=== PATIENT | male | born 1970 | race Caucasian/White ===

== ENCOUNTER 2017-11-26 09:25 | Day surgery (SDC) | payer OTHER ==
[2017-11-26] VITALS (12 sets, daily range): BP systolic 122–161; BP diastolic 70–91
[~2017-11-26] VITALS: Ht 190.5 cm; Wt 88.5 kg
[~2017-11-26 09:25] MED LIST: NO HOME MEDS; cefazolin/dext.iso 2gm/50ml 50 ML IV ONE; famotidine 20mg tablet PO ONE; ringers solution, lacted 1,000 ML IV SCH
[2017-11-26] MEDS ORDERED: BUPIVAcaine/PF 2.5 mg/ml (0.25%) 30ml vial ONE (11:11)
[2017-11-26] MEDS ORDERED: ceFAZolin 1000mg inj ONE (11:11)
[2017-11-26] MEDS ORDERED: sevoflurane 250ml liquid IH ONE (11:43)
[2017-11-26] MEDS ORDERED: fentaNYL /PF 50mcg/ml 5ml ampule ONE (11:47)
[2017-11-26] MEDS ORDERED: midazolam 2 mg/2 ml injection ONE (11:47)
[2017-11-26] MEDS ORDERED: propofol inj 20 ML IV ONE (11:48)
[2017-11-26] MEDS ORDERED: rocuronium 10mg/ml inj IV ONE (11:48)
[2017-11-26] MEDS ORDERED: ringers solution, lacted 1,000 ML IV SCH (12:09)
[2017-11-26] MEDS ORDERED: ondansetron/PF 4mg/2ml inj IV PRN (12:10)
[2017-11-26] MEDS ORDERED: morphine 4 MG/ML inj SYRINge IV PRN ×2 (12:10)
[2017-11-26] MEDS ORDERED: meperidine/PF 50mg/ml syringe IV PRN ×2 (12:10)
[2017-11-26] MEDS ORDERED: proCHLORperazine 10 MG/2 ml inj IV PRN (12:10)
[2017-11-26] MEDS ORDERED: MORPHINE 2MG in 2ml NS syringe IV PRN (12:13)
[2017-11-26] MEDS ORDERED: glycopyrrolate 0.2mg/ml inj ONE (12:52)
[2017-11-26] MEDS ORDERED: neostigmine methylsulfate 1 MG/ML 10ml vial ONE (12:52)
[2017-11-26] MEDS ORDERED: ketorolac trometh. 30mg/ml inj. ONE (13:05)
[2017-11-26] MEDS: meperidine/PF 50mg/ml syringe IV PRN ×4 (13:25→13:57)
== END 2017-11-26 14:40 | disposition home or self-care (01) ==
LOC: PAS 09:25
PROVIDERS: ATTEND Surgery
DX: K40.90 Unilateral inguinal hernia, without obstruction or gangrene, not specified as recurrent (principal); I10 Essential (primary) hypertension; Z98.52 Vasectomy status; Z98.890 Other specified postprocedural states
CPT/HCPCS: 49650; 93005; A4315; A6258; C1727; C1781; J0690; J1885; J2175; J2250; J2274; J2704; J2710; J3010; J3490; J7120

== ENCOUNTER 2018-08-04 11:48 | Outpatient (CLI) | payer OTHER ==
[~2018-08-04 11:48] MED LIST changes: -cefazolin/dext.iso 2gm/50ml 50 ML IV ONE; -famotidine 20mg tablet PO ONE; -ringers solution, lacted 1,000 ML IV SCH
== END 2018-08-04 23:59 | disposition home or self-care (01) ==
LOC: RAD 11:48
PROVIDERS: ATTEND Family Medicine
DX: M75.22 Bicipital tendinitis, left shoulder (principal)
CPT/HCPCS: 73080

== ENCOUNTER 2019-11-02 09:06 | Outpatient (CLI) | payer OTHER ==
[2019-11-02 09:45] LABS: CLARITY,URINE CLEAR (Clear); COLOR,URINE YELLOW (Yellow); GLUCOSE, URINE NEGATIVE (Neg); KETONES,URINE NEGATIVE (Neg); LEUKOCYTE ESTERASE ,URINE NEGATIVE (Neg); NITRITES, URINE NEGATIVE (Neg); OCCULT BLOOD,URINE NEGATIVE (Neg); PROTEIN,URINE NEGATIVE (Neg); UROBILINOGEN,URINE 0.2 E.U/dL (0.2-1.0)
[2019-11-02 09:49] LABS: BASOPHILS % (AUTO) 0.8 % (0-1); EOSINOPHILS # (AUTO) 0.3 X10'3 (0-0.9); EOSINOPHILS % (AUTO) 6.3 % (0-6); HEMATOCRIT 43.5 % (42.0-52.0); HEMOGLOBIN 14.8 g/dl (14.0-17.9); LYMPHOCYTES # (AUTO) 1.4 X10'3 (1.1-4.8); LYMPHOCYTES % (AUTO) 29.6 % (21-51); MEAN CORPUSCULAR HEMOGLOBIN 30.6 PG (27.0-31.0); MEAN CORPUSCULAR VOLUME 89.8 FL (78-98); MEAN PLATELET VOLUME 7.6 FL (7.4-10.4); MONOCYTES # (AUTO) 0.6 X10'3 (0-0.9); MONOCYTES % (AUTO) 12.3 % (2-12); NEUTROPHILS # (AUTO) 2.4 X10'3 (1.8-7.7); PLATELET COUNT 253 X10'3 (140-440); RED BLOOD COUNT 4.84 X10'6 (4.70-6.10); RED CELL DISTRIBUTION WIDTH 13.9 % (11.5-14.5); WHITE BLOOD COUNT 4.6 X10'3 (4.5-11.0)
[2019-11-02 10:03] LABS: UA COLLECTION TYPE VOIDED
[2019-11-02 10:17] LABS: ALANINE AMINOTRANSFERASE 30 U/L (12-78); ALBUMIN 3.9 G/DL (3.4-5.0); ALKALINE PHOSPHATASE 69 IU/L (46-116); ANION GAP 9 (8-16); ASPARTATE AMINO TRANSFERASE 20 U/L (10-37); BILIRUBIN,TOTAL 0.3 MG/DL (0.1-1.0); BLOOD UREA NITROGEN 17 MG/DL (7-18); BUN/CREATININE RATIO 15.3 (5.4-32.0); CALCIUM 8.6 MG/DL (8.5-10.1); CHLORIDE 104 MMOL/L (99-107); CHOL/HDL RATIO 3.1 (0.00-4.99); CHOLESTEROL 183 MG/DL (0-200); CREATININE 1.11 MG/DL (0.60-1.10); GLUCOSE 103 MG/DL (70-104); HDL CHOLESTEROL 60 MG/DL (35-60); LDL CHOLESTEROL 96 MG/DL (50-100); POTASSIUM 4.1 MMOL/L (3.5-5.1); SODIUM 141 MMOL/L (135-145); TOTAL PROTEIN 7.8 G/DL (6.4-8.2); TRIGLYCERIDES 61 MG/DL (20-135); eGFR 71 ML/MIN
[2019-11-02 10:20] LABS: HEMOGLOBIN A1C 5.4 % (4.5-6.2)
== END 2019-11-02 23:59 | disposition home or self-care (01) ==
LOC: LAB 09:06
PROVIDERS: ATTEND Family Medicine
DX: Z00.00 Encounter for general adult medical examination without abnormal findings (principal)
CPT/HCPCS: 36415; 80053; 80061; 81003; 83036; 84439; 84443; 85025

== ENCOUNTER 2020-12-02 15:06 | Emergency (ER) | payer BC, OTHER ==
[~2020-12-02] VITALS: Ht 190.5 cm; Wt 90.9 kg
[2020-12-02 15:09] VITALS: BP 167/96
[2020-12-02] MEDS ORDERED: LIDOcaine 1% W/epiNEPHrine 1:200,000 10ml vial IJ ONE (15:50)
== END 2020-12-02 17:43 | disposition home or self-care (01) ==
LOC: ER 15:06
DX: S51.812A Laceration without foreign body of left forearm, initial encounter (principal); R20.0 Anesthesia of skin; Z90.89 Acquired absence of other organs; W18.39XA Other fall on same level, initial encounter; Y93.89 Activity, other specified; Y92.89 Other specified places as the place of occurrence of the external cause; Y99.8 Other external cause status
CPT/HCPCS: 12002; 99282; 99283

== ENCOUNTER 2020-12-08 15:12 | Outpatient (CLI) | payer BC | END 2020-12-08 23:59 | disposition home or self-care (01) | LOC: RAD 15:12 | PROVIDERS: ATTEND Nurse Practitioner Family | DX: M79.602 Pain in left arm (principal); M79.642 Pain in left hand | CPT/HCPCS: 73090 ==